=== PATIENT | male | born 1960 | race Caucasian/White ===

== ENCOUNTER 2020-11-13 12:50 | Emergency (ER) | payer OTHER ==
[2020-11-13 13:10] VITALS: BP 115/78; PULSE 83; TEMP 98; BMI 28.5
[2020-11-13 14:34] LABS: BASO % 0.6 % (0-2.0); EOS % 0.7 % (0-4.5); HEMATOCRIT 45.9 % (35.4-49); HEMOGLOBIN 15.5 GM/dL (11.7-16.9); LYMPH % 29.9 % (8-40); MCH 30.3 pg (25.7-33.7); MCHC 33.9 g/dl (32.0-35.9); MEAN CELL VOLUME 89.4 fl (80-96); MEAN PLT VOLUME 8.2 fl (7.5-11.1); MONO % 15.1 % (3.8-10.2); NEUT % 53.7 % (42.8-82.8); PLATELET COUNT 195 K/MM3 (134-434); RBC 5.13 M/mm3 (4.00-5.60); RDW 13.5 % (11.9-15.9); WHITE BLOOD COUNT 5.5 K/mm3 (4.0-10.0)
[2020-11-13 14:53] LABS: POTASSIUM 4.4 mmol/L (3.5-5.1)
[2020-11-13 14:56] LABS: CALCIUM 8.6 mg/dL (8.5-10.1)
[2020-11-13] MEDS ORDERED: KETOROLAC TROMETHAMINE 30 MG/1 ML VIAL IM ONE (15:00)
[2020-11-13 15:02] LABS: TOT PROT 7.1 g/dl (6.4-8.2)
[2020-11-13] MEDS ORDERED: KETOROLAC TROMETHAMINE 30 MG/1 ML VIAL ONE (15:02)
[2020-11-13 15:34] LABS: URINE APPEARANCE CLEAR; URINE BILIRUBIN NEGATIVE (NEGATIVE); URINE COLOR YELLOW; URINE GLUCOSE (UA) NEGATIVE (NEGATIVE); URINE KETONE TRACE (NEGATIVE); URINE LEUK ESTERASE NEGATIVE (NEGATIVE); URINE NITRITE NEGATIVE (NEGATIVE); URINE PROTEIN NEGATIVE (NEGATIVE)
== END 2020-11-13 17:06 | disposition home or self-care (01) ==
LOC: JERFT 12:50 → JER 12:50 → JERFT 17:06
PROC: 3E0233Z Introduction of Anti-inflammatory into Muscle, Percutaneous Approach (ICD-10-PCS; principal; 2020-11-13)
DX: R10.9 Unspecified abdominal pain (principal)
CPT/HCPCS: 36415; 74176-TC; 80053; 81003; 85025; 87086; 99285-25; C9803; U0003

== ENCOUNTER 2023-12-16 15:59 | Inpatient (IN) | payer OTHER ==
[2023-12-16] MEDS ORDERED: FAMOTIDINE 20 MG/50 ML IVPB 20 MG/50 ML MG IVPB ONE (17:18)
[2023-12-16] MEDS ORDERED: MAG HYDROX/AL HYDROX/SIMETH 30 ML UNIT-DOSE CUP ONE (17:27)
[2023-12-16] MEDS ORDERED: ONDANSETRON 4 MG/2 ML VIAL ONE (17:27)
[2023-12-16] MEDS ORDERED: ACETAMINOPHEN INJECTION 100 ML IVPB ONE (17:27)
[2023-12-16] MEDS: ACETAMINOPHEN 1000 MG/100 ML BAG IVPB ONE (17:55)
[2023-12-16] MEDS: ONDANSETRON 4 MG/2 ML VIAL IVPUSH ONE (17:55)
[2023-12-16] MEDS: SODIUM CHLORIDE 0.9% 500 ML INFUS.BAG IV ONE (17:55)
[2023-12-16] MEDS: MAG HYDROX/AL HYDROX/SIMETH 30 ML UNIT-DOSE CUP PO ONE (17:55)
[2023-12-16] MEDS ORDERED: SUCRALFATE 1 GM TABLET (FP) PO SCH ×2 (17:57→22:00)
[2023-12-16] MEDS: SUCRALFATE 1 GM TABLET (FP) PO ONE (18:01)
[2023-12-16 18:13] LABS: BASO % 0.2 % (0-2.0); EOS % 0.8 % (0-4.5); HEMATOCRIT 47.2 % (35.4-49); HEMOGLOBIN 15.9 GM/dL (11.7-16.9); LYMPH % 9.5 % (8-40); MCH 29.9 pg (25.7-33.7); MCHC 33.7 g/dl (32.0-35.9); MEAN CELL VOLUME 88.6 fl (80-96); MEAN PLT VOLUME 7.8 fl (7.5-11.1); MONO % 5.2 % (3.8-10.2); NEUT % 84.3 % (42.8-82.8); PLATELET COUNT 311 10^3/uL (134-434); RBC 5.32 M/mm3 (4.00-5.60); RDW 13.6 % (11.9-15.9); WHITE BLOOD COUNT 14.4 K/mm3 (4.0-10.0)
[2023-12-16 18:30] LABS: POTASSIUM 4.2 mmol/L (3.5-5.1)
[2023-12-16 18:32] LABS: BLOOD UREA NITROGEN 16.9 mg/dL (7-18); CALCIUM 9.6 mg/dL (8.5-10.1)
[2023-12-16 18:36] LABS: CREATININE 0.9 mg/dL (0.55-1.3)
[2023-12-16 18:37] LABS: BILIRUBIN,TOTAL 0.8 mg/dL (0.2-1); TOT PROT 7.6 g/dl (6.4-8.2)
[2023-12-16 18:40] LABS: URINE APPEARANCE CLEAR; URINE BILIRUBIN NEGATIVE (NEGATIVE); URINE COLOR YELLOW; URINE GLUCOSE (UA) NEGATIVE (NEGATIVE); URINE KETONE NEGATIVE (NEGATIVE); URINE LEUK ESTERASE NEGATIVE (NEGATIVE); URINE NITRITE NEGATIVE (NEGATIVE); URINE PROTEIN NEGATIVE (NEGATIVE); URINE UROBILINOGEN 0.2 mg/dL (0.2-1.0)
[2023-12-17] MEDS: LACTATED RINGERS SOLUTION 1,000 ML IV SCH (00:55)
[2023-12-17] MEDS ORDERED: TRIMETHOBENZAMIDE HCL 200MG/2ML INJ IM PRN (01:17)
[2023-12-17 02:45] VITALS: RESP 18; BMI 29.5
[2023-12-17] MEDS: ACETAMINOPHEN 1000 MG/100 ML BAG IVPB PRN (05:40)
[2023-12-17] MEDS: ENOXAPARIN NA (PORCINE) 40 MG/0.4 ML DISP.SYRIN SQ SCH (09:38)
[2023-12-17 11:08] LABS: BASO % 0.2 % (0-2.0); EOS % 2.4 % (0-4.5); HEMATOCRIT 42.6 % (35.4-49); HEMOGLOBIN 14.7 GM/dL (11.7-16.9); LYMPH % 13.3 % (8-40); MCH 30.4 pg (25.7-33.7); MCHC 34.4 g/dl (32.0-35.9); MEAN CELL VOLUME 88.5 fl (80-96); MEAN PLT VOLUME 8.2 fl (7.5-11.1); MONO % 9.1 % (3.8-10.2); PLATELET COUNT 274 10^3/uL (134-434); RBC 4.81 M/mm3 (4.00-5.60); RDW 13.8 % (11.9-15.9); WHITE BLOOD COUNT 10.5 K/mm3 (4.0-10.0)
[2023-12-17 11:33] LABS: POTASSIUM 4.2 mmol/L (3.5-5.1)
[2023-12-17 11:36] LABS: BLOOD UREA NITROGEN 18.7 mg/dL (7-18); CALCIUM 8.7 mg/dL (8.5-10.1)
[2023-12-17 11:37] LABS: ALBUMIN 3.5 g/dl (3.4-5.0); MAGNESIUM 2.4 mg/dL (1.8-2.4)
[2023-12-17 11:38] LABS: PHOSPHOROUS 3.3 mg/dL (2.5-4.9)
[2023-12-17 11:40] LABS: CREATININE 0.8 mg/dL (0.55-1.3); TOT PROT 6.5 g/dl (6.4-8.2)
[2023-12-18 06:05] VITALS: BP 119/75; PULSE 75; TEMP 98
[2023-12-18] MEDS: LACTATED RINGERS SOLUTION 1,000 ML IV SCH (08:58)
[2023-12-18 09:20] LABS: BASO % 0.2 % (0-2.0); EOS % 4.9 % (0-4.5); HEMATOCRIT 40.4 % (35.4-49); HEMOGLOBIN 13.5 GM/dL (11.7-16.9); LYMPH % 17.8 % (8-40); MCH 29.7 pg (25.7-33.7); MCHC 33.4 g/dl (32.0-35.9); MONO % 8.7 % (3.8-10.2); NEUT % 68.4 % (42.8-82.8); PLATELET COUNT 220 10^3/uL (134-434); RBC 4.53 M/mm3 (4.00-5.60); RDW 13.2 % (11.9-15.9); WHITE BLOOD COUNT 7.3 K/mm3 (4.0-10.0)
[2023-12-18 09:25] LABS: INR 1.16 (0.83-1.09); PROTHROMBIN TIME (PATIENT) 13.4 SEC (9.7-13.0)
[2023-12-18 09:47] LABS: POTASSIUM 4.1 mmol/L (3.5-5.1)
[2023-12-18 09:50] LABS: CALCIUM 8.1 mg/dL (8.5-10.1)
[2023-12-18 09:51] LABS: ALBUMIN 3.2 g/dl (3.4-5.0); BLOOD UREA NITROGEN 13.3 mg/dL (7-18); MAGNESIUM 2.3 mg/dL (1.8-2.4)
[2023-12-18 09:54] LABS: CREATININE 0.7 mg/dL (0.55-1.3); PHOSPHOROUS 2.6 mg/dL (2.5-4.9)
[2023-12-18 09:56] LABS: BILIRUBIN,TOTAL 0.8 mg/dL (0.2-1)
[2023-12-18] MEDS: metFORMIN HCL 500 MG TABLET (FP) PO SCH (10:07)
== END 2023-12-18 14:00 | disposition home or self-care (01) | DRG 390 ==
LOC: JER 15:59 → JERBED 23:56 → J5S 12-17 02:17
PROVIDERS: ADMIT Internal Medicine; ATTEND Internal Medicine
PROC: 0D9670Z Drainage of Stomach with Drainage Device, Via Natural or Artificial Opening (ICD-10-PCS; principal; 2023-12-16)
DX: K56.609 Unspecified intestinal obstruction, unspecified as to partial versus complete obstruction (principal); E11.9 Type 2 diabetes mellitus without complications; R11.10 Vomiting, unspecified; K76.0 Fatty (change of) liver, not elsewhere classified
CPT/HCPCS: 0241U-QW; 36415; 71045-TC-FY; 74018-TC-FY; 74176-TC; 80053; 81003; 82962; 83690; 83735; 84100; 85025; 85610; 85730; 93005; 93010; 99285-25; J0131

== ENCOUNTER 2024-02-19 04:11 | Day surgery (SDC) | payer OTHER ==
[2024-02-14 13:12] VITALS: BMI 29.2
[2024-02-19] MEDS ORDERED: ceFAZolin SODIUM 1 GM VIAL ONE (06:54)
[2024-02-19] MEDS ORDERED: BUPIVACAINE HCL/PF 0.25% (2.5MG/ML) 10 ML VIAL ONE (07:21)
[2024-02-19] MEDS ORDERED: FENTANYL CITRATE/PF 50 MCG/ML VIAL ONE ×2 (08:08→12:45)
[2024-02-19] MEDS ORDERED: MIDAZOLAM HCL 2 MG/2 ML SINGLE DOSE VIAL ONE (08:08)
[2024-02-19] MEDS ORDERED: ROCURONIUM BROMIDE 50 MG/5 ML SYRINGE ONE ×4 (08:09→10:32)
[2024-02-19] MEDS ORDERED: PROPOFOL 20 ML ONE ×2 (08:09→10:00)
[2024-02-19] MEDS ORDERED: HEPARIN NA (PORCINE) 5,000 UNITS/ML 1ML VIAL ONE (08:15)
[2024-02-19] MEDS: ceFAZolin SODIUM 1 GM VIAL IVPB ONE (08:30)
[2024-02-19] MEDS: BUPIVACAINE HCL/PF 0.25% (2.5MG/ML) 10 ML VIAL IJ ONE (10:11)
[2024-02-19] MEDS ORDERED: oxyCODONE HCL 5 MG TABLET PO PRN (11:46)
[2024-02-19] MEDS ORDERED: LACTATED RINGERS SOLUTION 1,000 ML IV SCH (12:00)
[2024-02-19 13:33] VITALS: RESP 18
[2024-02-19 14:44] VITALS: BP 132/76; PULSE 85; TEMP 98
== END 2024-02-19 14:45 | disposition home or self-care (01) ==
LOC: JASU-SURG 04:11
PROVIDERS: ATTEND Surgery
PROC: 8E0W4CZ Robotic Assisted Procedure of Trunk Region, Percutaneous Endoscopic Approach (ICD-10-PCS; 2024-02-19)
PROC: 0WUF4JZ Supplement Abdominal Wall with Synthetic Substitute, Percutaneous Endoscopic Approach (ICD-10-PCS; principal; 2024-02-19 08:00)
DX: K42.0 Umbilical hernia with obstruction, without gangrene (principal)
CPT/HCPCS: 49616; 49623; S2900; 82962; 86850; 86900; 86901; 88302-TC; 94760; C1781; J1644